=== PATIENT | male | born 1975 | race Caucasian/White ===

== ENCOUNTER 2016-10-14 13:38 | Emergency (ER) | payer MEDICAID, OTHER ==
[~2016-10-14] VITALS: Ht 180.3 cm; Wt 99.8 kg
[2016-10-14] MEDS ORDERED: LEVETIRACETAM INJ 1,000 MG in SODIUM CHL 0.9% 100 ML IV ONE (14:00)
[2016-10-14 15:23] VITALS: BP 117/69
== END 2016-10-14 16:02 | disposition home or self-care (01) ==
LOC: EDBD 13:38 → ER 13:42
DX: G40.909 Epilepsy, unspecified, not intractable, without status epilepticus (principal); Z87.891 Personal history of nicotine dependence; F11.10 Opioid abuse, uncomplicated; F12.10 Cannabis abuse, uncomplicated
CPT/HCPCS: 94761; 96365; 99284; J1953

== ENCOUNTER 2017-01-13 18:42 | Emergency (ER) | payer MEDICAID ==
[~2017-01-13] VITALS: Ht 180.3 cm; Wt 95.3 kg
[2017-01-13 18:45] VITALS: BP 152/82
== END 2017-01-13 21:44 | disposition left against medical advice (07) ==
LOC: EDBD 18:42 → ER 18:52
DX: R52 Pain, unspecified (principal); Z53.21 Procedure and treatment not carried out due to patient leaving prior to being seen by health care provider